=== PATIENT | female | born 1940 | race Caucasian/White ===

== ENCOUNTER 2016-12-03 15:13 | Emergency (ER) | payer OTHER ==
[2016-12-03 15:35] VITALS: BP 174/102
[2016-12-03] MEDS ORDERED: NS 1,000 ML ONE (15:40)
[2016-12-03] MEDS ORDERED: MOTRIN PO ONE (16:01)
--- NOTE | 2016-12-03 16:08 | PROVIDER DOCUMENTATION ---
HPI-Musculoskeletal Pain/Inj - GENERAL Chief Complaint: Fall Stated Complaint: FALL Time Seen by Provider: 12/03/16 15:38 Source: patient - HX OF PRESENT ILLNESS-MUSKULOSKELTAL Nature of Presenting Problem: This pt presents today c complaints of R ankle and knee pain after slipping and rolling her ankle this morning. She reports pain with flexion of the knee. She reports swelling. No loss of motor function or sensation. No head injury or neck pain. No other issues or complaints. Quality of Pain: reports: aching Severity in ED: moderate Onset/Duration: this morning Timing: still present Modifying Factors: improves with: movement, palpation Any recent injury?: Yes Locality of Occurance: Home Similar Symptoms Previously?: No Recently seen or treated by another doctor?: No Review of Systems - Adult - REVIEW OF SYSTEMS - ADULT Constitutional: reports: no symptoms reported. denies: chills, fever Eyes: reports: no symptoms reported. denies: discharge, dry eyes Ears, Nose, Mouth & Throat: reports: no symptoms reported. denies: ear discharge, ear pain Cardiovascular: reports: no symptoms reported. denies: chest pain, edema Respiratory: reports: no symptoms reported. denies: chronic cough, cough Gastrointestinal: reports: no symptoms reported. denies: abdominal pain, hematemesis Genitourinary: reports: no symptoms reported. denies: dysuria, discharge Musculoskeletal: reports: joint pain, joint swelling. denies: bone pain, back pain, muscle aches Integumentary: reports: no symptoms reported. denies: hives, hair loss Neurological: reports: no symptoms reported. denies: ataxia, dizziness/vertigo Psychiatric: reports: no symptoms reported. denies: anxiety, anti-depressant use Endocrine: reports: no symptoms reported Hematologic/Lymphatic: reports: no symptoms reported Allergic/Immunologic: reports: no symptoms reported All Other Systems: Reviewed and Negative Past History - Adult - PAST MEDICAL HISTORY-ADULT Review of Records: reports: Old Records Reviewed, Nursing Assessment Review, Medications Reviewed, Social history reviewed & non-contributory. Major Childhood Illnesses: reports: denies history Cardiovascular: reports: denies history Respiratory: reports: denies history Gastrointestinal: reports: denies history Obstetrical/Gynecological: reports: denies history Genitourinary: reports: denies history Musculoskeletal: reports: denies history Neurological: reports: other (neuropathy) Endocrine/Immune: reports: denies history Other Conditions: reports: denies history - PRIOR SURGERIES/PROCEDURES Surgical/Procedure History: reports: appendectomy, tonsillectomy, back/neck - IMMUNIZATION STATUS Childhood Immunizations: See Nurse Assessment Flu Vaccine: See Nurse Assessment Physical Exam-Injury Related - Physical Exam-Injury Related Initial Vital Signs Reviewed: Yes General Appearance: appears well, alert, no apparent distress Eyes: PERRL/EOMI, pink conjunctivae Head, Ears, Nose, Mouth & Throat: normocephalic/atraumatic, normal ENT inspection, TMs normal, pharynx normal Neck: non-tender, full range of motion, supple, normal inspection Respiratory: chest non-tender, lungs clear, normal breath sounds, no pleuratic chest pain, no respiratory distress, no accessory muscle use Cardiovascular: normal peripheral pulses, regular rate, rhythm, no edema, no gallop, no JVD, no murmur Peripheral Pulses: dorsalis-pedis (R): 2+, dorsalis-pedis (L): 2+ Abdominal Exam: normal bowel sounds, non tender, soft, no organomegaly, no pulsatile mass Lymphatic: no adenopathy Back Exam: normal inspection, no CVA tenderness, no vertebral tenderness Extremity: no pedal edema, no calf tenderness, normal capillary refill, pelvis stable, swelling, tenderness. negative: deformity, erythema, pulse deficit, pedal edema Integumentary: normal color, warm/dry Neurologic: net architect II-XII nml as tested, no motor/sensory deficits Psych/Mental Status: AL, normal mood/affect, normal thought content, normal thought process, oriented x 3 Progress - PLAN OF CARE/RESULTS Progress/Plan/Lab Results: Orders Category Date Time Status Frantz Wrap Application DIRECTED Care 12/03/16 16:01 Active Crutches DIRECTED Care 12/03/16 16:01 Active ANKLE COMPLETE RIGHT [RAD] Stat Exams 12/03/16 15:41 Taken KNEE 3 VIEWS RIGHT [RAD] Stat Exams 12/03/16 15:39 Taken 0.9% Sodium Chloride Inj [Ns] 1,000 ml Med 12/03/16 15:40 Discontinued .ROUTE As Directed Ibuprofen [Motrin] Med 12/03/16 16:01 Discontinued 800 mg PO NOW ONE Vital Signs Temp Pulse Resp BP Pulse Ox 12/03/16 15:27 97.9 F 98 H 18 174/102 100 Sulfa (Sulfonamide Antibiotics) Allergy (Verified 12/03/16 15:55) Unknown Amlodipine [Norvasc] 5 mg PO DAILY 11/20/16 Calcium Carbonate/Vitamin D3 [Calcium 600 + Vit D Tablet] 1 tab PO DAILY Cetirizine HCl [Zyrtec] 10 mg PO DAILY 11/20/16 Prednisone 15 mg PO DAILY 11/20/16 Quinapril [Accupril] 40 mg PO DAILY 11/20/16 Sucralfate 1 gm PO TID 11/20/16 Will have pt f/u c ortho. - XRAY 1 XRAY: Right XRAY Study: Ankle XRAY Interpretation: STS; no fx 2 XRAY: Right XRAY Study: Knee XRAY Interpretation: no fx Procedures - SPLINTING Right Lower Extremity Other Location: knee Pre-Procedure Neurovascular Exam: Intact Pre-Fabricated Splint: Frantz Wrap Applied By: platform stapler Post Procedure Neurovascular Exam: Intact Procedure Comment: no complications Departure - Departure Time of Disposition Order: 16:06 DIAGNOSIS: Right knee sprain Qualifiers: Encounter type: initial encounter Involved ligament of knee: unspecified ligament Qualified Code(s): S83.91XA - Sprain of unspecified site of right knee , initial encounter Right ankle sprain Qualifiers: Encounter type: initial encounter Involved ligament of ankle: unspecified ligament Qualified Code(s): S93.401A - Sprain of unspecified ligament of right ankle, initial encounter Disposition: HOME 01 Certified Medical Emergency: Urgent Condition: Good Additional Instructions: Take medication as prescribed. Rest, ice and elevate. Follow up with an orthopedist. ED Follow Up Instructions: You have been treated by a care provider in the Emergency Department. These instructions are being provided to you so you can have an understanding of how to care for yourself upon discharge. Upon discharge from the Emergency Department, you are responsible for making arrangements for follow-up care by a physician of your choice. Take all prescribed medications as directed. Return to the Emergency Department immediately for any new or worsening symptoms. You may call the Physician Referral phone number at [phone] to obtain a list of Physicians who are taking new patients. Prescriptions: Meloxicam [Mobic] 7.5 mg PO DAILY PRN PRN #15 tablet PRN Reason: Pain Referrals: Caitlin Looney [Primary Care Provider] - Anibal Perez MD [STAFF PHYSICIAN] - Attestation - Physician/ Mid-level Attestation Patient care was provided by Mid-level provider (BRIM WELT SEWING MACHINE OPERATOR/PA):: Yes Mid-level provider:: Nathan Disla Mid-level documentation review:: The Mid-level provider documentation, treatment plan and medical decision making was reviewed by the physician who agrees with all treatment and medical decision making by the MLP.
--- NOTE | 2016-12-03 16:19 | Diag Imaging Result Document ---
PROCEDURE NAME: KNEE 3 VIEWS RIGHT - 12/03/2016 PLAIN RADIOGRAPH THE RIGHT KNEE 3 VIEWS: COMPARISON: None available. FINDINGS: There is no definite fracture, dislocation, or intrinsic osseous lesion appreciated. The joint spaces appear to be preserved. There is a small osteophyte at the inferior aspect of the patellofemoral joint. There is soft tissue edema around the knee. IMPRESSION: No definite acute osseous abnormality.
--- NOTE | 2016-12-03 16:19 | Diag Imaging Result Document ---
PROCEDURE NAME: ANKLE COMPLETE RIGHT - 12/03/2016 PLAIN RADIOGRAPH OF THE RIGHT ANKLE 3 VIEWS: COMPARISON: None available. FINDINGS: There is no definite fracture, dislocation, or intrinsic osseous lesion. The joint spaces appear to be preserved. There is perhaps mild soft tissue edema anterior to the ankle. IMPRESSION: No evidence of acute osseous abnormality by plain radiograph.
== END 2016-12-03 16:41 | disposition home or self-care (01) ==
LOC: ED 15:13
DX: S83.91XA Sprain of unspecified site of right knee, initial encounter (principal); S93.401A Sprain of unspecified ligament of right ankle, initial encounter; M25.571 Pain in right ankle and joints of right foot; M25.561 Pain in right knee; M25.48 Effusion, other site; W01.0XXA Fall on same level from slipping, tripping and stumbling without subsequent striking against object, initial encounter
CPT/HCPCS: 99283; J7030

== ENCOUNTER 2020-01-29 16:04 | Observation (INO) ==
[2020-01-29] MEDS ORDERED: ZOFRAN IV PRN (17:01)
[2020-01-29] MEDS ORDERED: SALINE LOCK IV FLUID XX ONE ×2 (17:01→21:51)
[2020-01-29] MEDS ORDERED: TYLENOL PO PRN (17:11)
[2020-01-29] MEDS ORDERED: MORPHINE IV PRN (17:11)
--- NOTE | 2020-01-29 17:58 | Diag Imaging Result Doc PS360 ---
EXAM: CHEST-2 VIEWS - 01/29/2020 HISTORY: cp TECHNIQUE: Chest two views COMPARISON: 03/05/2018 FINDINGS: Heart size is normal. There is mild tortuosity of the thoracic aorta. There is apparent progressive scarring at the left base. The remainder of the lungs appear clear. There is no substantial pleural effusion or pneumothorax identified. There is substantial thoracic spondylosis noted. IMPRESSION: Progressive scarring at left base. No discrete pneumonia. No pneumothorax. Electronically signed by Hood Pedroza 01/29/2020 5:56 PM
[2020-01-29 18:52] LABS: BASO# 0.06 X1000 (0.0-0.2); BASO% 0.8 % (0.0-0.8); EOS# 0.38 X1000 (0.0-0.7); HEMATOCRIT 37.2 % (37.0-47.0); HEMOGLOBIN 11.5 g/dL (12.0-16.0); IMM GRAN# 0.02 X1000 (0.0-0.04); IMM GRAN% 0.3 % (0.0-0.5); LYMPH# 1.66 X1000 (1.2-3.4); MCHC 30.9 g/dL (33-37); MCV 90.5 FL (81-99); MONO# 0.61 X1000 (0.11-0.59); MONO% 8.1 % (1.7-9.3); MPV 9.4 FL (7.4-10.4); NEUT% 63.8 % (42.2-75.2); PLT 337 X1000 (130-400); RBC 4.11 XMIL (4.2-5.4); RDW 14.2 % (11.5-14.5); WBC 7.53 X1000 (4.8-10.8)
[2020-01-29] MEDS: ASPIRIN PO SCH (18:55)
[2020-01-29] MEDS: LABETALOL IV PRN (18:56)
[2020-01-29 19:06] LABS: INR 1.02; PROTIME 13.5 Seconds (11.0-16.0); PTT 28.8 Seconds (22.3-41.8)
[2020-01-29 19:21] LABS: ALB/GLOB RATIO 1.1; ALBUMIN 3.5 g/dL (3.5-5.0); CALCIUM 9.2 mg/dL (8.8-10.2); CREATININE 0.9 mg/dL (0.5-0.9); POTASSIUM 4.8 mmol/L (3.5-5.1); TOTAL BILIRUBIN 0.25 mg/dL (0.20-1.00); TOTAL PROTEIN 6.7 g/dL (6.3-8.3)
[2020-01-29] MEDS ORDERED: LIORESAL PO PRN (21:59)
--- NOTE | 2020-01-29 22:28 | HISTORY AND PHYSICAL ---
CHIEF COMPLAINT: Chest pain. HISTORY OF PRESENT ILLNESS: The patient is a 79-year-old white female who states over the past 2 weeks she has had several episodes of chest pains. She says the pains have been prominent across her chest and occur later in each day when they occur. Tylenol seems to help some. Many of the episodes have lasted 2 hours. Last episode occurring yesterday. She denies associated shortness of breath or diaphoresis. She denies leg swelling but has had some cramping in her calves, left greater than right. MEDICATIONS PRIOR TO ADMISSION: Caltrate plus D 1 p.o. daily, Accupril 40 mg p.o. daily, prednisone 10 mg p.o. every other day, Cymbalta 60 mg p.o. b.i.d., gabapentin 400 mg p.o. at bedtime, baclofen 10 mg p.o. t.i.d. p.r.n. leg cramps, metoprolol/HCT 100/25 one p.o. q.a.m., sulindac 200 mg p.o. b.i.d. with food. ALLERGIES: Sulfa. She says aspirin and ibuprofen at times have given her GI upset in the past but no true allergy. PAST MEDICAL HISTORY: 1. Gastroesophageal reflux disease. 2. Hypertension. 3. Osteoarthritis severe diffuse especially of the back. 4. Diverticulosis diagnosed in 2006. 5. Hypercholesterolemia. 6. History of right breast cancer, ductal carcinoma in situ, status post right mastectomy in 2011. 7. 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 8. Peripheral neuropathy. 9. Chronic obstructive pulmonary disease. 10. Osteoporosis. 11. Chronic back pain. PAST SURGICAL HISTORY: 1. Appendectomy. 2. Tonsillectomy. 3. D and C. 4. Back surgery x2, occurring in July and September of 2006. 5. Right mastectomy secondary to breast cancer June 2012. 6. Right quadriceps tendon repair November 2016. 7. Bilateral cataract removal. IMMUNIZATIONS: Pneumovax 23 given 05/24/2006 and August 2017, Prevnar 13 given July 2015. She has taken at least one of the Shingrix immunizations at her local pharmacy. Last influenza vaccination August 2019. FAMILY HISTORY: Negative for [place] in the family. Stroke is notable in her mother. Mother with Alzheimer's dementia, colon cancer in her father, diabetes mellitus in grandmother, hypertension in her sister and father. SOCIAL HISTORY: The patient lives in [place]. She is . She has 1 child that is and another that is living. 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 She quit smoking in November 2015 but has a 40 pack-year history of smoking. Drinks rare wine. REVIEW OF SYSTEMS: Negative except as above. PHYSICAL EXAMINATION: GENERAL: Frail, somewhat chronically ill-appearing white female. SKIN: No skin breakdown. HEENT: NC/AT. PERRL. EOMI. Sclerae clear. OP: No redness. Tongue in the midline. NECK: No LA, TMG, JVD, or bruits. CARDIOVASCULAR: RRR without murmur. LUNGS: Distant breath sounds CTA. BREASTS/PELVIC/RECTAL: Deferred. BACK: No point tenderness today. ABDOMEN: Soft, NT, ND. No mass. No HSM. EXTREMITIES: Trace lower extremity edema. Peripheral pulses 2+. OA changes diffuse mild to moderate. NEUROLOGIC: CN 2 through 12 intact. Nonfocal. DIAGNOSTIC DATA: EKG in the office reveals normal sinus rhythm without acute ST changes. ASSESSMENT: 1. Chest pain. 2. Hypertension. 3. Hypercholesterolemia. 4. Remote tobacco abuse. 5. Osteoarthritis. 6. Chronic back pain. 7. History of ductal carcinoma in situ right breast requiring mastectomy only 2011. 8. Monoclonal gammopathy of undetermined significance. 9. Chronic obstructive pulmonary disease. 10. Peripheral neuropathy. 11. Osteoporosis. 12. Diverticulosis. 13. Gastroesophageal reflux disease. 14. History of depression primarily stemming from her son's a couple of years ago. PLAN: We will admit the patient to the hospital for workup, obtain serial cardiac enzymes, troponin levels. Check chest x-ray. Check proBNP and D-dimer. Check CMP, CBC, PT, PTT. Give her an aspirin daily and continue her home medications except for the sulindac. cc: Twin Looney MD
[2020-01-29] MEDS: NITROGLYCERIN SL PRN ×2 (22:59→23:11)
[2020-01-30 05:09] LABS: URINE SOURCE CLEAN CATCH
[2020-01-30 05:41] LABS: BILIRUBIN URINE NEGATIVE (NEGATIVE); BLOOD URINE NEGATIVE (NEGATIVE); COLOR YELLOW; GLUCOSE URINE NEGATIVE (NEGATIVE); KETONE URINE NEGATIVE (NEGATIVE); LEUKOCYTES URINE NEGATIVE (NEGATIVE); NITRITE URINE NEGATIVE (NEGATIVE); PH URINE 6.5; PROTEIN URINE NEGATIVE (NEGATIVE); TURBIDITY URINE CLEAR (CLEAR); UROBILINOGEN URINE NORMAL (NORMAL)
[2020-01-30 05:42] LABS: UR EPITHELIAL CELLS <10 /HPF (<10); URINE BACTERIA NEGATIVE /HPF; URINE RBC <10 /HPF (<10); URINE WBC <10 /HPF (<10)
[2020-01-30] MEDS ORDERED: PRILOSEC PO SCH (07:00)
--- NOTE | 2020-01-30 07:39 | EKG Report ---
Test Performed on : 01/30/2020 06:11:19 AM Test Reason : cp Blood Pressure : / mmHG Vent. Rate : 080 BPM Atrial Rate : 080 BPM P-R Int : 152 ms QRS Dur : 066 ms QT Int : 370 ms P-R-T Axes : 086 064 081 degrees QTc Int : 426 ms Normal sinus rhythm. Low voltage QRS Possible Septal infarct , age undetermined Abnormal ECG When compared with ECG of 20-NOV-2016 13:41, premature ventricular complexes. are no longer present Possible Septal infarct is now present Confirmed by Jude Brown MD ([id number]) on 01/31/2020 10:48:23 AM
[2020-01-30 07:52] LABS: CHOLESTEROL 154 mg/dL (0-200); HDL 52 mg/dL (45-65); LDL 78 mg/dL; TRIGLYCERIDES 118 mg/dL (35-135); VLDL 24 mg/dL
[2020-01-30] MEDS ORDERED: LOPRESSOR PO SCH (09:00)
[2020-01-30] MEDS ORDERED: PREDNISONE PO SCH (09:00)
[2020-01-30] MEDS ORDERED: ACCUPRIL PO SCH (09:00)
[2020-01-30] MEDS ORDERED: CYMBALTA PO SCH (09:00)
[2020-01-30] MEDS ORDERED: HYDROCHLOROTHIAZIDE PO SCH (09:00)
[2020-01-30] MEDS: ASPIRIN PO SCH (09:57)
--- NOTE | 2020-01-30 10:24 | Diag Imaging Result Doc PS360 ---
EXAM: CT ANGIOGRAM PULMONARY ARTERIES 01/30/2020 HISTORY: cp/elevated d-dimer TECHNIQUE: This exam was performed using automated exposure control, adjustment of mA or kV according to patient size, and/or use of iterative reconstruction technique. COMMENT: 3-D MIPS were performed. There are no previous studies available for comparison. There are no filling defects. The aorta is normal in caliber. There is no evidence of dissection. Note is made of a large renal cyst on the left. There is no evidence of significant adenopathy. There are no abnormal fluid collections. There are emphysematous changes particularly in the right lower lobe which is particularly distended and hyperlucent. There are some platelike opacities present in the right lower lobe and to a greater extent in the costophrenic sulcus of the left lower lobe. There has been apparent right mastectomy. There is some minimal atelectasis or fibrosis in the lingula. There are severe degenerative disc changes in the thoracic spine. IMPRESSION: No evidence of pulmonary emboli. COPD. Atelectasis versus fibrosis particularly of the left lower lobe. Right lower lobe lobar emphysema. Electronically signed by Mike Mckeon 01/30/2020 10:22 AM
[2020-01-30 11:15] VITALS: BP 196/88
[2020-01-30] MEDS: LABETALOL IV PRN (12:19)
--- NOTE | 2020-01-30 13:53 | PROGRESS NOTE ---
DATE: 01/30/2020 SUBJECTIVE: Patient does state she still had some vague chest pain that seemed to move from the right axilla across her chest to the left axillary area. This is occurring off and on during the night, very mild. Serial cardiac enzymes, troponin levels are negative. The patient had a mildly elevated D-dimer at 0.69, and thus CT pulmonary angiogram was done which showed some scarring, but no pulmonary emboli. OBJECTIVE: Vital Signs: Afebrile. Blood pressure is elevated at times. CV: RRR without murmur. Lungs: Cannot rule out rare dry crackle. Distant breath sounds. Extremities: No calf tenderness, cords or edema. Neurologic: Cranial nerves are intact. No focal deficits. LABS: CBC unremarkable. Hemoglobin 11.5. PT 13.5, INR 1.02, PTT 28.8. D-dimer 0.69. CMP unremarkable. BUN 29, creatinine 0.9. Alkaline phosphatase is elevated at 144 consistent with her osteoarthritis she suffers from. CK's are in the 50 to 60 range and troponins are in the 14 to 16 range. LDL is 78, triglycerides 118, total cholesterol 154, HDL 52. Urinalysis negative. X-RAYS: EKG is showing some low voltage anteriorly, otherwise no acute ST changes. CT pulmonary angiogram with no evidence of pulmonary emboli. COPD is showing up with atelectasis and fibrotic changes, particularly in the left lower lobe and some right lower lobe emphysema as well. ASSESSMENT: 1. Chest pain, vague, somewhat atypical, but within a patient with strong risk factors for coronary artery disease. 2. Chronic obstructive pulmonary disease. 3. Hypertension. 4. Hypercholesterolemia. 5. Remote tobacco abuse. 6. Osteoarthritis. 7. Chronic back pain. 8. History of ductal carcinoma in situ right breast with prior right mastectomy in 2011. 9. Monoclonal gammopathy of undetermined significance followed by Dr. Rachel. 10. Peripheral neuropathy. 11. Osteoporosis. 12. Diverticulosis. 13. Gastroesophageal reflux disease. 14. Depression. 15. Leg cramps. PLAN: For now, we will keep her on her Lopressor 100 mg p.o. daily and Accupril 40 mg daily. Consider re-addition of Norvasc she had taken in the past, but it caused some lower extremity edema, so I am going to monitor blood pressure closely for the time being. Continue baclofen for leg cramps. We will ask Cardiology to see the patient for further recommendations regarding cardiac workup. Continue her aspirin daily. cc: Twin Looney MD
--- NOTE | 2020-01-30 15:41 | CARDIOLOGY CONSULTATION ---
DATE: 01/30/2020 REASON FOR CONSULTATION: Cardiology was consulted for chest pain. HISTORY OF PRESENT ILLNESS: Ms. Yi is a 79-year-old lady who for the last 2 weeks has been having episodes of chest pain, which she describes as tightness, mainly occurring in the evening, not positional. There is no radiation to the back. It is across the front chest wall. There is no associated diaphoresis. She has noticed some shortness of breath. But not associated with the chest pain. There is no history of palpitations. There is no history of dizziness or syncope. Intensity of chest pain described as [id number]. She has noticed some pedal edema as well. REVIEW OF SYSTEM: A 14-point review of systems was done. GI System: There is no history of nausea, vomiting, diarrhea. There is no history of gi bleeding. Central nervous system: No focal weakness to suggest a CVA or TIA. Genitourinary System: There is no dysuria or hematuria. MEDICATIONS: 1. Caltrate. 2. Accupril 40. 3. Prednisone 10. 4. Cymbalta 60. 5. Gabapentin is 400 b.i.d. 6. Baclofen 10 t.i.d. 7. Metoprolol hydrochlorothiazide 125. 8. Sulindac 200 b.i.d. with food. ALLERGIES: She is allergic to sulfonamides. SOCIAL HISTORY: She does not smoke. Does not drink. She quit smoking in November 2015 but has a 40 pack-year history of smoking. FAMILY HISTORY: Negative for [place]. Stroke notable in her mother. Alzheimer's and diabetes in her grandmother. IMMUNIZATION: Pneumovax 23, Prevnar 13 in 2016 and 2014. She also had Shingrix. PAST SURGICAL HISTORY: 1. Appendectomy. 2. Tonsillectomy. 3. D and C. 4. Back surgery. 5. Right mastectomy. 6. Right quadriceps tendon repair. 7. Bilateral cataract removal. PAST MEDICAL HISTORY: 1. Gastroesophageal reflux disease. 2. Hypertension. 3. Osteoarthritis. 4. Diverticulosis. 5. History of right breast cancer ductal carcinoma in-situ, status post right mastectomy. 6. MGUS followed by Dr. Rachel. 7. Peripheral neuropathy. 8. COPD. 9. Osteoporosis. 10. Chronic pain in the back. PHYSICAL EXAMINATION: Vital Signs: Blood pressure was 130/80. Cardiovascular: First and second heart sounds were heard. There was no S3 gallop. Respiratory System: Normal air entry. There are no crepitations or rhonchi. Abdomen: Soft, nontender. There was no guarding or rigidity. Bowel sounds were heard. Central nervous system: Alert and oriented. Moving all 4 extremities. Extremities: Examination of extremities revealed no pedal edema. HEENT: Atraumatic normocephalic. Pupils were equal and reacting to light. Neck: No lymphadenopathy. JVD was normal. Skin: No skin breakdown. DIAGNOSTIC DATA: Electrocardiogram revealed normal sinus rhythm, no ST-T changes to suggest ischemia. ASSESSMENT: 1. Patient admitted with chest pain, has been ruled out for myocardial infarction by cardiac enzymes. We will plan for an echocardiogram and a Cardiolite stress test as an outpatient. 2. Hypertension. Continue with her home medications. Remote tobacco abuse. 3. Osteoarthritis and chronic back pain. I have not made any changes to medication. She has monoclonal gammopathy of undetermined significance. Not made any changes. She has osteoporosis and diverticulosis as well. 4. Laboratory examination was negative for ischemia. Laboratory examination as far as BMP and CBC were unremarkable. cc: MD Twin Urbano MD [facility]
[2020-01-30] MEDS ORDERED: NEURONTIN PO SCH (21:00)
== END 2020-01-30 16:16 | disposition home or self-care (01) ==
LOC: DIRADM → EDIPHOLD 16:04 → 4N 20:51
PROVIDERS: ADMIT Family Medicine; ATTEND Family Medicine